=== PATIENT | male | born 1960 | race Caucasian/White ===

== ENCOUNTER 2017-11-18 17:33 | Emergency (ER) | payer OTHER ==
[~2017-11-18] VITALS: Ht 182.9 cm; Wt 140.0 kg
[~2017-11-18 17:33] MED LIST: ALLO300T2 PO; ASPI-183 PO; BENA5TAB PO; CHOL5000 PO; DAPA1TAB3 PO; EZET10 PO; GLIM1TAB PO; LEFL1TAB3 PO; METF-382 PO; METO100T PO; NAPR500T2 PO; NITR0.4S SL; OMEG100010 PO; PANT40TA3 PO; POTA4.25 PO; RANO500 PO; SIMV20TA PO; SULFASALAZINE PO; VITA5000 PO
[2017-11-18 17:36] VITALS: BP 127/81; PULSE 69; RESP 20; TEMP 98.6; O2SAT 97
[2017-11-18 18:42] LABS: AUTOMATED NEUTROPHIL # 4.6 TH/MM3 (1.8-7.7); BASOPHIL # 0.1 TH/MM3 (0-0.2); BASOPHIL % 0.7 % (0.0-2.0); EOSINOPHIL # 0.2 TH/MM3 (0-0.4); EOSINOPHIL % 2.2 % (0.0-4.0); HEMATOCRIT 47.5 % (39.0-51.0); HEMOGLOBIN 16.2 GM/DL (13.0-17.0); LYMPHOCYTE # 2.3 TH/MM3 (1.0-4.8); MEAN CELL VOLUME 96.4 FL (80.0-100.0); MEAN CORPUSCULAR HEMOGLOBIN 32.8 PG (27.0-34.0); MEAN PLATELET VOLUME 8.9 FL (7.0-11.0); MONO % 8.8 % (0.0-8.0); MONOCYTE # 0.7 TH/MM3 (0-0.9); NEUT % 59.3 % (16.0-70.0); PLATELET COUNT 150 TH/MM3 (150-450); RED BLOOD COUNT 4.93 MIL/MM3 (4.50-5.90); RED CELL DISTRIBUTION WIDTH 14.5 % (11.6-17.2); WHITE BLOOD COUNT 7.8 TH/MM3 (4.0-11.0)
--- NOTE | 2017-11-18 18:53 | PD ---
HPI Chief Complaint: Abdominal Pain Time Seen by Provider: 18:53 Travel History International Travel<30 days: No Contact w/Intl Traveler<30days: No Traveled to known affect area: No History of Present Illness HPI 57-year-old male with history of CAD, hypertension, diabetes, presents emergency department for evaluation of upper abdominal pain. He describes it as a band across the top of his abdomen, intermittently sharp, constantly dull presence. This has been going on for the last 2 days. He has been belching more frequently. Denies any fever or chills. Mild nausea without vomiting. States his bowel movements are smaller. No other symptoms to report. PFSH Past Medical History Arthritis: Yes (SORIATIC AND RUMETOID) Asthma: No Blood Disorders: No Heart Rhythm Problems: No Cancer: No Cardiovascular Problems: Yes High Cholesterol: Yes Chemotherapy: No Chest Pain: Yes Congestive Heart Failure: No COPD: No Coronary Artery Disease: Yes (ANGINA) Diabetes: Yes Diminished Hearing: No Endocrine: Yes Gastrointestinal Disorders: Yes (ESOPHAGEAL STRICTURES/DILATATION) GERD: Yes Gout: Yes Genitourinary: Yes (KIDNEY STONES) Hepatitis: No Hiatal Hernia: No Hypertension: Yes Immune Disorder: No Kidney Stones: Yes Musculoskeletal: Yes Neurologic: No Psychiatric: No Reproductive: No Respiratory: No Integumentary: Yes (PSORIASIS) Immunizations Current: Yes Radiation Therapy: No Renal Failure: No Sleep Apnea: No Thyroid Disease: No Ulcer: No Past Surgical History Abdominal Surgery: No AICD: No Body Medical Devices: ABD MESH IMPLANTS, UMBILICAL Cardiac Surgery: Yes (ANGIOPLASTY) Cholecystectomy: Yes (2003) Ear Surgery: No Endocrine Surgery: No Eye Surgery: No Genitourinary Surgery: Yes (STENT PLACEMENT, LITHOTRIPSY) Gynecologic Surgery: No Joint Replacement: No Oral Surgery: Yes (2 DENTAL IMPLANTS) Pacemaker: No Thoracic Surgery: No Other Surgery: Yes (PT. STATES FOUR LITHOTRIPSYS) Social History Alcohol Use: Yes (OCCASSIONAL) Tobacco Use: No Substance Use: No Allergies-Medications (Allergen,Severity, Reaction): Uncoded Allergies: ARTIFICIAL SWEETNER (Allergy, Severe, 11/18/17) INDIGESTION, RASH--INTERMEDIATE RXN--06/15/13. TAR BASED TOPICAL CREAMS (Allergy, Severe, LARGE RED PUSTULES, 11/18/17) INTERMITTENT . Reported Meds & Prescriptions Reported Meds & Active Scripts Active Protonix (Pantoprazole Sodium) 40 Mg Tab 40 Mg PO DAILY 14 Days Reported Zetia (Ezetimibe) 10 Mg Tab 10 Mg PO DAILY Glimepiride 1 Mg Tab 1 Mg PO DAILY Take with breakfast or first main meal Zetia (Ezetimibe) 10 Mg Tab 10 Mg PO DAILY Vitamin D3 (Cholecalciferol) 5,000 Unit Cap 5,000 Units PO DAILY [sulfa salazine] 500 Mg PO BID Simvastatin 20 Mg Tab 20 Mg PO DAILY Ranexa ER 12 HR (Ranolazine) 500 Mg Tab 500 Mg PO BID Potassium Citrate ER 15 Meq Tab 15 Meq PO TID Pantoprazole (Pantoprazole Sodium) 40 Mg Tab 40 Mg PO DAILY Henderson 3 1000 mg (Henderson-3 Fatty Acids) 1 Cap Cap 1,000 Mg PO TID Nitrostat SL (Nitroglycerin) 0.4 Mg Subl 0.4 Mg SL DIRECTED PRN 1 tablet under the tongue as needed for chest pain. Repeat every 5 minutes for a total of 3 DOSES or call 911 if NO relief. Naproxen 500 Mg Tab 500 Mg PO BID Metoprolol Tartrate 100 Mg Tab 100 Mg PO BID Metformin ER (Metformin HCl) 1,000 Mg Froilan 1,000 Mg PO BID With evening meal Leflunomide 20 Mg Tab 20 Mg PO DAILY Farxiga (Dapagliflozin) 10 Mg Tab 10 Mg PO DAILY Benazepril (Benazepril HCl) 5 Mg Tab 5 Mg PO BID Aspirin 325 Mg Tab 325 Mg PO DAILY Allopurinol 300 Mg Tab 300 Mg PO DAILY Review of Systems Except as stated in HPI: all other systems reviewed are Neg Physical Exam Narrative GENERAL: Well-nourished male patient, in no acute distress. SKIN: Focused skin assessment warm/dry. HEAD: Atraumatic. Normocephalic. EYES: Pupils equal and round. No scleral icterus. No injection or drainage. ENT: No nasal bleeding or discharge. Mucous membranes pink and moist. NECK: Trachea midline. No JVD. CARDIOVASCULAR: Regular rate and rhythm. No murmur appreciated. RESPIRATORY: No accessory muscle use. Clear to auscultation. Breath sounds equal bilaterally. GASTROINTESTINAL: Abdomen is rotund, soft, nondistended. Mild tenderness to palpation in the epigastric area and left upper quadrant. Hepatic and splenic margins not palpable. MUSCULOSKELETAL: No obvious deformities. No clubbing. No cyanosis. No edema. NEUROLOGICAL: Awake and alert. No obvious cranial nerve deficits. Motor grossly within normal limits. Normal speech. PSYCHIATRIC: Appropriate mood and affect; insight and judgment normal. Data Data Last Documented VS Vital Signs Date Time Temp Pulse Resp B/P (MAP) Pulse Ox O2 Delivery O2 Flow Rate FiO2 11/18/17 21:04 84 16 126/69 (88) 97 11/18/17 19:05 Room Air 11/18/17 17:36 98.6 Orders Orders Complete Blood Count With Diff (11/18/17 17:48) Comprehensive Metabolic Panel (11/18/17 17:48) Urinalysis - C+S If Indicated (11/18/17 17:48) Lipase (11/18/17 17:48) Morphine Inj (Morphine Inj) (11/18/17 19:15) Ondansetron Inj (Zofran Inj) (11/18/17 19:15) Sodium Chlor 0.9% 1000 Ml Inj (Ns 1000 M (11/18/17 19:15) Ct Abd/Pel W Iv Contrast(Rout) (11/18/17 ) Iohexol 350 Inj (Omnipaque 350 Inj) (11/18/17 20:24) Ed Discharge Order (11/18/17 20:49) Labs Laboratory Tests Test 11/18/17 18:00 11/18/17 18:05 Urine Color YELLOW Urine Turbidity CLEAR Urine pH 5.5 Urine Specific [place] 1.016 Urine Protein NEG mg/dL Urine Glucose (UA) 1000 mg/dL Urine Ketones NEG mg/dL Urine Occult Blood NEG Urine Nitrite NEG Urine Bilirubin NEG Urine Urobilinogen LESS THAN 2.0 MG/DL Urine Leukocyte Esterase NEG Urine WBC LESS THAN 1 /hpf Urine Hyaline Casts 1 /lpf Microscopic Urinalysis Comment CULT NOT INDICATED White Blood Count 7.8 TH/MM3 Red Blood Count 4.93 MIL/MM3 Hemoglobin 16.2 GM/DL Hematocrit 47.5 % Mean Corpuscular Volume 96.4 FL Mean Corpuscular Hemoglobin 32.8 PG Mean Corpuscular Hemoglobin Concent 34.0 % Red Cell Distribution Width 14.5 % Platelet Count 150 TH/MM3 Mean Platelet Volume 8.9 FL Neutrophils (%) (Auto) 59.3 % Lymphocytes (%) (Auto) 29.0 % Monocytes (%) (Auto) 8.8 % Eosinophils (%) (Auto) 2.2 % Basophils (%) (Auto) 0.7 % Neutrophils # (Auto) 4.6 TH/MM3 Lymphocytes # (Auto) 2.3 TH/MM3 Monocytes # (Auto) 0.7 TH/MM3 Eosinophils # (Auto) 0.2 TH/MM3 Basophils # (Auto) 0.1 TH/MM3 CBC Comment DIFF FINAL Differential Comment Blood Urea Nitrogen 10 MG/DL Creatinine 1.25 MG/DL Random Glucose 129 MG/DL Total Protein 7.7 GM/DL Albumin 4.2 GM/DL Calcium Level 9.7 MG/DL Alkaline Phosphatase 80 U/L Aspartate Amino Transf (AST/SGOT) 25 U/L Alanine Aminotransferase (ALT/SGPT) 34 U/L Total Bilirubin 0.7 MG/DL Sodium Level 136 MEQ/L Potassium Level 4.9 MEQ/L Chloride Level 104 MEQ/L Carbon Dioxide Level 25.4 MEQ/L Anion Gap 7 MEQ/L Estimat Glomerular Filtration Rate 60 ML/MIN Lipase 265 U/L MDM Medical Decision Making Medical Screen Exam Complete: Yes Emergency Medical Condition: Yes Medical Record Reviewed: Yes Differential Diagnosis Pancreatitis versus gastritis versus biliary colic Narrative Course 57-year-old male presents to emergency department for evaluation of upper quadrant abdominal pain. Patient appears overall well. He does have some mild left upper quadrant and epigastric tenderness to palpation. Patient is treated for pain. Lab work is complete and reviewed without acute concern. CT imaging is also complete. Laboratory Tests Test 11/18/17 18:00 11/18/17 18:05 Urine Color YELLOW Urine Turbidity CLEAR Urine pH 5.5 Urine Specific [place] 1.016 Urine Protein NEG mg/dL Urine Glucose (UA) 1000 mg/dL Urine Ketones NEG mg/dL Urine Occult Blood NEG Urine Nitrite NEG Urine Bilirubin NEG Urine Urobilinogen LESS THAN 2.0 MG/DL Urine Leukocyte Esterase NEG Urine WBC LESS THAN 1 /hpf Urine Hyaline Casts 1 /lpf Microscopic Urinalysis Comment CULT NOT INDICATED White Blood Count 7.8 TH/MM3 Red Blood Count 4.93 MIL/MM3 Hemoglobin 16.2 GM/DL Hematocrit 47.5 % Mean Corpuscular Volume 96.4 FL Mean Corpuscular Hemoglobin 32.8 PG Mean Corpuscular Hemoglobin Concent 34.0 % Red Cell Distribution Width 14.5 % Platelet Count 150 TH/MM3 Mean Platelet Volume 8.9 FL Neutrophils (%) (Auto) 59.3 % Lymphocytes (%) (Auto) 29.0 % Monocytes (%) (Auto) 8.8 % Eosinophils (%) (Auto) 2.2 % Basophils (%) (Auto) 0.7 % Neutrophils # (Auto) 4.6 TH/MM3 Lymphocytes # (Auto) 2.3 TH/MM3 Monocytes # (Auto) 0.7 TH/MM3 Eosinophils # (Auto) 0.2 TH/MM3 Basophils # (Auto) 0.1 TH/MM3 CBC Comment DIFF FINAL Differential Comment Blood Urea Nitrogen 10 MG/DL Creatinine 1.25 MG/DL Random Glucose 129 MG/DL Total Protein 7.7 GM/DL Albumin 4.2 GM/DL Calcium Level 9.7 MG/DL Alkaline Phosphatase 80 U/L Aspartate Amino Transf (AST/SGOT) 25 U/L Alanine Aminotransferase (ALT/SGPT) 34 U/L Total Bilirubin 0.7 MG/DL Sodium Level 136 MEQ/L Potassium Level 4.9 MEQ/L Chloride Level 104 MEQ/L Carbon Dioxide Level 25.4 MEQ/L Anion Gap 7 MEQ/L Estimat Glomerular Filtration Rate 60 ML/MIN Lipase 265 U/L Last Impressions Abdomen/Pelvis CT 11/18/17 0000 Signed Impressions: Service Date/Time: Saturday, November 18, 2017 20:21 - CONCLUSION: 1. Mild thickening of the wall of the duodenum with minimal periduodenal streakiness suggesting acute duodenitis. Clinical correlation is recommended. 2. Enlarged fatty liver. 3. Multiple calcified nonobstructing renal calculi. 4. Left renal cysts. 5. Degenerative changes throughout the thoracolumbar spine. 6. Bilateral inguinal hernias containing only fat. 1. Arsenio Warren MD Upon reassessment, patient verbalizes marked improvement in his pain. I have discussed the patient with my attending physician. I have discussed with him appropriate diet and the importance of following up with a senior corporate recruiter for further evaluation. He agrees to return immediately with any acute worsening symptoms. Diagnosis Primary Impression: Duodenitis Additional Impressions: Renal calculus, bilateral Renal cyst Referrals: Primary Care Physician Patient Instructions: Duodenitis (ED), General Instructions Additional Instructions: Follow-up with your primary care provider See gastroenterology evaluation Avoid acidic and abrasive foods Return immediately to the emergency department with any acute worsening of symptoms Med/Other Pt SpecificInfo: Prescription(s) given Scripts Pantoprazole (Protonix) 40 Mg Tab 40 MG PO DAILY for Ulcer Prevention for 14 Days, #14 TAB 0 Refills Prov: Sherrie Sparks 11/18/17 Disposition: 01 DISCHARGE HOME Condition: Stable Sherrie Sparks Nov 18, 2017 18:53
[2017-11-18 18:54] LABS: BILIRUBIN, URINE NEG (NEG); BLOOD, URINE NEG (NEG); GLUCOSE,URINE 1000 mg/dL (NEG); HYALINE CAST, URINE 1 /lpf (RARE); KETONE, URINE NEG (NEG); NITRITE,URINE NEG (NEG); PH, URINE 5.5 (5.0-8.5); URINE COLOR YELLOW (YELLW/STRAW); URINE LEUKOCYTE ESTERASE NEG (NEG)
[2017-11-18 19:00] VITALS: BP 151/84; PULSE 82; RESP 16; O2SAT 96
[2017-11-18] MEDS ORDERED: EZET10 PO (19:04)
[2017-11-18 19:05] VITALS: BP 151/84; PULSE 82; RESP 18; O2SAT 96
[2017-11-18] MEDS ORDERED: SODIUM CHLOR 0.9% 1000 ML INJ 1,000 ML IV ONE (19:15)
[2017-11-18] MEDS ORDERED: MORPHINE SULFATE 2 MG/ML INJ IV PUSH ONE (19:15)
[2017-11-18] MEDS ORDERED: ONDANSETRON HCL 4 MG/2 ML VIAL IV PUSH ONE (19:15)
[2017-11-18 19:16] LABS: ALKALINE PHOSPHATASE 80 U/L (45-117); ALT (GPT) 34 U/L (12-78); TOTAL BILIRUBIN ADULT 0.7 MG/DL (0.2-1.0); TOTAL PROTEIN 7.7 GM/DL (6.4-8.2)
[2017-11-18 19:36] LABS: ALBUMIN 4.2 GM/DL (3.4-5.0); AST (GOT) 25 U/L (15-37); BICARBONATE 25.4 MEQ/L (21.0-32.0); BLOOD UREA NITROGEN 10 MG/DL (7-18); CALCIUM 9.7 MG/DL (8.5-10.1); CHLORIDE 104 MEQ/L (98-107); CREATININE 1.25 MG/DL (0.60-1.30); GLOMERULAR FILTRATION RATE 60 ML/MIN (>89); GLUCOSE,RANDOM 129 MG/DL (74-106); SODIUM (NA) 136 MEQ/L (136-145)
[2017-11-18] MEDS ORDERED: IOHEXOL 350 MG/ML 10 ML VIAL (for RAD DIAG) IVCONTRAST ONE (20:24)
--- NOTE | 2017-11-18 20:44 | RADRPT ---
EXAM DATE/TIME: 11/18/2017 20:21 [facility] COMPARISON: No previous studies available for comparison. INDICATIONS : Abdominal pain. IV CONTRAST: 100 cc Omnipaque 350 (iohexol) IV ORAL CONTRAST: No oral contrast ingested. RADIATION DOSE: 20.45 CTDIvol (mGy) MEDICAL HISTORY : Cardiovascular disease. Renal calculi. Hypertension. SURGICAL HISTORY : Uretal stents. ENCOUNTER: Initial ACUITY: 1 day PAIN SCALE: 7/10 LOCATION: abdomen TECHNIQUE: Volumetric scanning of the abdomen and pelvis was performed. Using automated exposure control and ad justment of the mA and/or kV according to patient size, radiation dose was kept as low as reasonably achievable to obtain optimal diagnostic quality images. DICOM format image data is available electro nically for review and comparison. FINDINGS: LOWER LUNGS: The visualized lower lungs are clear. LIVER: The liver is enlarged and demonstrates diffuse fatty infiltration. No focal mass is noted. The gallbl adder has been resected. There is no dilation of the biliary tree. No calcified gallstones. SPLEEN: Normal size without lesion. PANCREAS: Within normal limits. KIDNEYS: Normal in size and shape. Multiple calcified nonobstructing renal calculi are noted. The largest is noted on the left and measures 8 mm. There are scattered small simple cysts within the left kidney wi th the largest measuring 13 mm. There is no solid mass or hydronephrosis. ADRENAL GLANDS: Within normal limits. VASCULAR: There is no aortic aneurysm. BOWEL/MESENTERY: There is mild thickening of the wall of the duodenum with minimal periduodenal streakiness suggesting acute duodenitis. Clinical correlation is recommended. ABDOMINAL WALL: Within normal limits. RETROPERITONEUM: There is no lymphadenopathy. BLADDER: No wall thickening or mass. REPRODUCTIVE: Within normal limits. INGUINAL: Bilateral inguinal hernias containing only fat.. MUSCULOSKELETAL: Degenerative changes are noted throughout the thoracolumbar spine. CONCLUSION: 1. Mild thickening of the wall of the duodenum with minimal periduodenal streakiness suggesting acute duodenitis. Clinical correlation is recommended. 2. Enlarged fatty liver. 3. Multiple calcified nonobstructing renal calculi. 4. Left renal cysts. 5. Degenerative changes throughout the thoracolumbar spine. 6. Bilateral inguinal hernias containing only fat. 1. Arsenio Warren MD on November 18, 2017 at 20:36 Board Certified Radiologist. This report was verified electronically.
[2017-11-18] MEDS ORDERED: PROT40TA PO (20:55)
[2017-11-18 21:04] VITALS: BP 126/69
== END 2017-11-18 21:37 | disposition home or self-care (01) ==
LOC: NEPE 17:33
DX: K29.80 Duodenitis without bleeding (principal); N20.0 Calculus of kidney; N28.1 Cyst of kidney, acquired; E78.00 Pure hypercholesterolemia, unspecified; I20.9 Angina pectoris, unspecified; E11.9 Type 2 diabetes mellitus without complications; I10 Essential (primary) hypertension; Z88.8 Allergy status to other drugs, medicaments and biological substances; Z91.018 Allergy to other foods; Z79.82 Long term (current) use of aspirin
CPT/HCPCS: 74177; 80053; 81001; 83690; 85025; 96374; 96375; 99285; J2270; J2405; J7030; Q9967